=== PATIENT | male | born 1965 | race Caucasian/White ===

== ENCOUNTER 2019-09-05 06:25 | Day surgery (SDC) | payer BC ==
[2019-09-05] MEDS ORDERED: Dextrose 5%-Lactated Ringers 1,000 ML IV SCH (07:00)
[2019-09-05] MEDS ORDERED: fentaNYL 100 MCG/2 ML SDV ONE (07:12)
[2019-09-05] MEDS ORDERED: Midazolam 1 MG/ML 2 ML SDV ONE (07:12)
[2019-09-05] MEDS ORDERED: Propofol 200 MG/20 ML SDV ONE (07:12)
--- NOTE | 2019-09-16 14:00 | OR ---
DATE OF PROCEDURE: 09/05/2019 SURGEON: Raj Toure MD PREOPERATIVE DIAGNOSIS: Indication for screening colonoscopy. POSTOPERATIVE DIAGNOSIS: Single polyp, mid sigmoid colon. OPERATIVE PROCEDURE: Flexible colonoscopy with polypectomy by snare technique. INDICATION FOR PROCEDURE: This is a 54-year-old male presenting for initial screening colonoscopy. Plan is to proceed with colonoscopy with biopsies and/or polypectomy as indicated. Potential risks of the procedure including bleeding and perforation were discussed, and the patient wishes to proceed. DETAILS OF PROCEDURE: The patient was taken to the operating room and placed in a left lateral decubitus position. IV sedation was administered, after which the initial digital rectal exam was performed and was unremarkable. Colonoscope was then passed into the rectum with retroflexion revealing uncomplicated hemorrhoidal columns. The scope was then eventually passed to the cecum. The prep was fairly good with only a small amount of liquid stool being present. To that level, there were no diverticula or areas of colitis. There was a single, fairly small polyp measuring around mm in the 65 cm range from the dentate line which would correspond to the mid to proximal sigmoid colon. Apart from that, no other areas of polyps or signs of neoplasia were seen. Upon withdrawal of the scope, the polyp was once again identified and excised by means of a cautery snare technique and sent for histologic evaluation. Good hemostasis was noted at the polypectomy site. The procedure was then concluded. The patient was taken to the recovery room in satisfactory condition. Assuming that the present polyp is an adenomatous polyp, the next colonoscopy should be in the 2- to 3-year range. Raj Toure MD /[id number]
== END 2019-09-05 09:50 | disposition home or self-care (01) ==
LOC: JP.SDS 06:25
PROVIDERS: ATTEND Surgery
DX: Z12.11 Encounter for screening for malignant neoplasm of colon (principal); D12.4 Benign neoplasm of descending colon; K64.9 Unspecified hemorrhoids; K21.9 Gastro-esophageal reflux disease without esophagitis; I10 Essential (primary) hypertension
CPT/HCPCS: 45385; 88305; J2250; J2704; J3010; J7121

== ENCOUNTER 2024-09-16 08:30 | Day surgery (SDC) | payer BC, MEDICARE ==
[2024-09-16] MEDS ORDERED: fentaNYL 100 MCG/2 ML SDV ONE (08:35)
[2024-09-16] MEDS ORDERED: Propofol 200 MG/20 ML SDV ONE (08:35)
[2024-09-16] MEDS ORDERED: Midazolam 1 MG/ML 2 ML SDV ONE (08:36)
[2024-09-16] MEDS: Lactated Ringers 1,000 ML IV SCH (09:06)
== END 2024-09-16 11:26 | disposition home or self-care (01) ==
LOC: JP.SDS 08:30
PROVIDERS: ATTEND Surgery
DX: Z12.11 Encounter for screening for malignant neoplasm of colon (principal)
CPT/HCPCS: 45378; J2250; J2704; J3010; J7120